=== PATIENT | female | born 1965 | race Caucasian/White ===

== ENCOUNTER → 2024-04-20 | Outpatient (CLI) | payer BC ==
[~2024-04-20] MED LIST: AMBIEN5 MG PO; CEPHALEXIN500 M1 PO; DITROPAN5 MG PO; ESTROGENS PO; FLUONAZOLE150 M1 PO; IMITREX25 MG PO; TRAMADOL50 MG PO; VIBRAMYCIN100 MG PO; ZOFRAN4 MG PO
== END | disposition home or self-care (01) ==
LOC: WOUNDCARE 11:02
PROVIDERS: ATTEND Nurse Practitioner Family
DX: S70.312A Abrasion, left thigh, initial encounter (principal); L73.2 Hidradenitis suppurativa; L03.114 Cellulitis of left upper limb; L53.9 Erythematous condition, unspecified; R22.42 Localized swelling, mass and lump, left lower limb; M81.0 Age-related osteoporosis without current pathological fracture; Z90.710 Acquired absence of both cervix and uterus; Z95.818 Presence of other cardiac implants and grafts; Z79.82 Long term (current) use of aspirin; X58.XXXA Exposure to other specified factors, initial encounter; Y93.89 Activity, other specified; Y92.89 Other specified places as the place of occurrence of the external cause; Y99.8 Other external cause status

== ENCOUNTER → 2024-04-28 | Outpatient (CLI) | payer BC | END | disposition home or self-care (01) | LOC: WOUNDCARE 03:15 | PROVIDERS: ATTEND Nurse Practitioner Family | DX: S70.312D Abrasion, left thigh, subsequent encounter (principal); L02.416 Cutaneous abscess of left lower limb; L03.114 Cellulitis of left upper limb; L73.2 Hidradenitis suppurativa; L53.9 Erythematous condition, unspecified; M81.0 Age-related osteoporosis without current pathological fracture; M79.7 Fibromyalgia; R22.42 Localized swelling, mass and lump, left lower limb; Z90.710 Acquired absence of both cervix and uterus; Z98.84 Bariatric surgery status; Z95.818 Presence of other cardiac implants and grafts; Z79.82 Long term (current) use of aspirin; Z79.899 Other long term (current) drug therapy; X58.XXXD Exposure to other specified factors, subsequent encounter ==